=== PATIENT | male | born 1980 | race Caucasian/White ===

== ENCOUNTER 2020-06-25 22:36 | Outpatient (REF) | payer MEDICAID, SELFPAY ==
[2020-06-25 21:24] LABS: Abs Immature Grans 0.03 10^3/uL (0.0-0.06); Absolute Basophil Count 0.05 10^3/uL (0.0-0.2); Absolute Eosinophil Count 0.09 10^3/uL (0.0-0.7); Absolute Lymphocyte Count 3.23 10^3/uL (1.2-3.4); Absolute Monocyte Count 0.58 10^3/uL (0.1-0.8); Absolute Neutrophil Count 4.17 10^3/uL (1.2-6.7); Basophils % 0.6; Eosinophils % 1.1; HCT 49.6 % (40.0-50.0); Immature Grans % 0.4; Lymphocytes % 39.6; MCH 28.9 pg (27.0-33.0); MCHC 32.3 % (32.0-36.0); MCV 89.7 fL (80-95); MPV 10.4 fL (8.0-11.0); Monocytes % 7.1; Neutrophils % 51.2; Nucleated RBC 0 %; Platelet Count 249 10^3/uL (130-400); RBC 5.53 10^6/uL (4.36-5.78); RDW-SD 42.8 fL; WBC 8.15 10^3/uL (4.4-10.8)
[2020-06-25 21:46] LABS: ALT 24 U/L (16-63); AST 12 U/L (15-37); Albumin 4.2 g/dL (3.4-5.0); Alkaline Phosphatase 51 U/L (46-116); Anion Gap 5.8 mmol/L (3-11); BUN 19 mg/dL (7-18); Bilirubin, Total 0.4 mg/dL (0.2-1.0); CO2 29.2 mmol/L (21.0-32.0); CREATININE 0.89 mg/dL (0.70-1.30); Calcium 8.9 mg/dL (8.5-10.1); Calculated LDL 124 mg/dL (<100); Chloride 106 mmol/L (98-107); Cholesterol 186 mg/dL (<200); Glucose 108 mg/dL (74-106); HDL Cholesterol 40 mg/dL (40-60); Potassium 4.3 mmol/L (3.5-5.1); Sodium 141 mmol/L (136-145); Total Protein 7.1 g/dL (6.4-8.2); Triglyceride 111 mg/dL (<150)
== END 2020-06-25 22:56 ==
LOC: NCHCN 22:36
PROVIDERS: PCP Physician Assistant; Visit Provider Physician Assistant
DX: Z13.220 Encounter for screening for lipoid disorders (principal); Z13.1 Encounter for screening for diabetes mellitus; Z00.00 Encounter for general adult medical examination without abnormal findings
CPT/HCPCS: 80053; 80061; 85025

== ENCOUNTER 2020-07-02 02:10 | Outpatient (CLI) | payer MEDICAID, SELFPAY ==
--- NOTE | 2020-07-02 15:57 | DI.RAD_ITS ---
EXAM: XR CERVICAL SPINE COMP 4-5V CLINICAL HISTORY: CERVICALGIA, M54.2. TECHNIQUE: 2D digital imaging was performed. COMPARISON: No exams were available for comparison FINDINGS: BONES: No fracture or destructive lesion. Vertebral bodies are unremarkable. DISKS: At C5-6 and C6-C7, there is disc space narrowing and endplate osteophytes. Moderate bilateral neural foraminal stenosis is seen at C5-6 and C6-C7. ALIGNMENT: Cervical spinal alignment is within normal limits. The odontoid and atlantoaxial articulat ions are normal. SOFT TISSUE: Normal. The lung apices are clear. IMPRESSION: Moderate degenerative changes at C5-6 and C6-C7. DATA REPOSITORY: RADIATION DOSE DELIVERED:
== END 2020-07-02 02:30 ==
PROVIDERS: PCP Physician Assistant; Visit Provider Physician Assistant
DX: M47.812 Spondylosis without myelopathy or radiculopathy, cervical region (principal); M54.2 Cervicalgia
CPT/HCPCS: 72050

== ENCOUNTER 2020-07-26 01:29 | Outpatient (CLI) | payer MEDICAID, SELFPAY ==
--- NOTE | 2020-07-26 | DI.MRI_ITS ---
EXAM: MR CERVICAL SPINE WO CLINICAL HISTORY: DEGENERATIVE JONT DISEASE,M43.02,CERVICALAGIA,M54.2 TECHNIQUE: Multiplanar multisequence MRI of the cervical spine was performed without intravenous con trast. COMPARISON: No exams were available for comparison FINDINGS: The examination is limited due to patient motion artifact. BONES: Vertebral body heights are maintained. Intervertebral disc spaces are normal. Alignment is nor mal. Mild degenerative endplate signal changes at C5-6 and C6-C7 CERVICAL CORD: Craniovertebral junction is unremarkable. The cervical cord is normal size and signal intensity. SOFT TISSUES: Unremarkable. C2-3: No disc herniation or bulge is identified. No significant central spinal canal or neural forami nal stenosis. C3-4: No disc herniation or bulge is identified. No significant central spinal canal or neural forami nal stenosis C4-5: No disc herniation or bulge is identified. No significant central spinal canal or neural forami nal stenosis C5-6: Prominence of the osteophyte disc complex. Mild narrowing of the central spinal canal. Bilate ral moderate neural foraminal stenosis. C6-7: Prominence of the osteophyte disc complex. No significant central spinal canal stenosis. Mode rate bilateral neural foraminal stenosis. C7-T1: No disc herniation or bulge is identified. No significant central spinal canal or neural prosper inal stenosis IMPRESSION: Degenerative changes at C5-6 and C6-C7. The findings result in mild narrowing of the central spinal canal at C5-6 and bilateral neural foraminal stenosis at C5-6 and C6-C7. DATA REPOSITORY:
== END 2020-07-26 01:49 ==
PROVIDERS: PCP Physician Assistant; Visit Provider Physician Assistant
DX: M47.812 Spondylosis without myelopathy or radiculopathy, cervical region (principal); M48.02 Spinal stenosis, cervical region
CPT/HCPCS: 72141

== ENCOUNTER 2021-05-12 17:42 | Emergency (ER) | payer MEDICAID, SELFPAY ==
[2021-05-12 17:48] VITALS: BP 129/74; PULSE 74; RESP 16; TEMP 36.9; O2SAT 98
--- NOTE | 2021-05-12 18:42 | ED.GENADUL_ITS ---
Discharge Plan Disposition Patient Disposition: HOME Condition: Good Discharge Details Clinical Impression: URI (upper respiratory infection) Primary Care Provider: Maria Fernanda Pichardo ED Provider: Estephania Mullen Home Meds and New Rx's Prescriptions: New flunisolide 25 mcg (0.025 %) spray,non-aerosol 2 spray intranasal BID Qty: 25 RF: 0 No Action aspirin 325 mg tablet 325 mg PO DAILY RF: 0 ibuprofen 200 mg tablet 200 mg PO Q6H PRNRF: 0 Discharge Instructions Instructions: Upper Respiratory Infection (ED) Additional Instructions: Take Sudafed over the counter, you will likely need to show your license for pseudoephedrine, take every 4-6 hours motrin 600 mg every 8 hours use flonase for the next two weeks follow-up with pcp in 3-4 days with persistent symptoms coat your nostrils with vaseline twice daily return earlier with fever, chills, or with any new or worsening complaints Discharge Data Discharge Date/Time-TO BE ENTERED AT DEPARTURE: 05/12/21 19:50 Medical Decision Making Patient is alert and oriented, he appears well No indication for antibiotics at this time, fever, no hypoxia, no honey, alert, oriented, no facial edema Vitals stable Flonase and Sudafed, ibuprofen, Tylenol, will not continue to use [place] pot Return precautions discussed and patient expressed understanding, Medical Records Medical records reviewed: Yes I reviewed the patient's medical records. HPI General Mode of arrival: ambulatory . Date/Time Provider Initiated Documentation: 05/12/21 18:18 . Limitations to Documentation: no limitations . Information obtained by: patient . HPI Narrative: This 41-year-old male presents Related Data Home Medications Medication Instructions Recorded Confirmed aspirin 325 mg tablet 325 mg PO DAILY 03/20/21 05/12/21 ibuprofen 200 mg tablet 200 mg PO Q6H PRN 03/20/21 05/12/21 flunisolide 2 spray INTRANASAL BID #25 ml 05/12/21 Previous Rx's Medication Instructions Recorded flunisolide 2 spray INTRANASAL BID #25 ml 05/12/21 Allergies Allergy/AdvReac Type Severity Reaction Status Date / Time tomato Allergy Intermediate Unverified 05/12/21 17:53 bupropion HCl Allergy Hives Unverified 05/12/21 17:53 [From Wellbutrin] General Stated Complaint: RespSymp MONSERRAT: 4 Review of Systems All systems reviewed & are unremarkable except as noted in HPI and below PFSH Medical History Cervicalgia Degenerative joint disease of cervical spine Preventative health care Screening for diabetes mellitus Screening for lipid disorders Tobacco use Social History (Updated 03/20/21 @ 11:07 by Yu Marino) Smoking/Tobacco Use Status: Current every day Tobacco Type: cigarettes Smoking risk assessment performed?: Yes Alcohol Intake: current Alcohol Intake frequency: holidays/special occasions only Drug use: Daily Substance use type: marijuana Household members: family and children Housing: house Number of Children: 2 current occupation: [employer] What type of physical activity do you participate in: walking, independent ambulation, regular exercise and swimming Exam Const General: cooperative and well developed HENMT Other: No maxillary sinus tenderness, no ethmoid sinus tenderness, mild nasal mucosa bogginess Uvula midline Eyes Pupils: PERRL Chest Chest: normal inspection of the chest Resp Effort & Inspection: normal respiratory effort Auscultation: clear to auscultation bilaterally Cardio Rate: regular rate Rhythm: regular rhythm Skin General skin exam: no rashes or lesions noted Neuro General: patient alert and patient oriented x3 Course Vital Signs Vital signs: Vital Signs Temperature 36.9 C 05/12/21 17:48 Pulse 74 05/12/21 17:48 Respiratory Rate 16 05/12/21 17:48 Blood Pressure 129/74 05/12/21 17:48 Pulse Oximetry 98 05/12/21 17:48 Temperature 36.9 C 05/12/21 17:48 Temperature Source Skin 05/12/21 17:48 Pulse 74 05/12/21 17:48 Respiratory Rate 16 05/12/21 17:48 Respiratory Effort Non-Labored 05/12/21 17:53 Respiratory Depth Normal 05/12/21 17:53 Blood Pressure 129/74 05/12/21 17:48 Blood Pressure Position Sitting 05/12/21 17:48 Pulse Oximetry 98 05/12/21 17:48 Oxygen Delivery Method Room Air 05/12/21 17:48 Oxygen Flow Rate 0 05/12/21 17:48 Pain Level 5 05/12/21 17:48
== END 2021-05-12 19:50 | disposition home or self-care (01) ==
PROVIDERS: Emergency Provider Physician Assistant; PCP Physician Assistant
DX: J06.9 Acute upper respiratory infection, unspecified (principal); F17.210 Nicotine dependence, cigarettes, uncomplicated
CPT/HCPCS: 99283

== ENCOUNTER 2022-03-23 16:31 | Emergency (ER) | payer MEDICAID, SELFPAY ==
[2022-03-23 16:35] VITALS: BP 121/66; PULSE 75; RESP 18; TEMP 36.3; O2SAT 98
--- NOTE | 2022-03-23 17:10 | ED.GENADUL_ITS ---
Discharge Plan Disposition Patient Disposition: HOME Condition: Stable Discharge Details Clinical Impression: Hematuria Primary Care Provider: Maria Fernanda Pichardo ED Provider: Jacey Montiel Home Meds and New Rx's Prescriptions: Continued aspirin 325 mg tablet 325 mg PO DAILY PRN ibuprofen 200 mg tablet 200 mg PO Q6H PRN flunisolide 25 mcg (0.025 %) spray,non-aerosol 2 spray intranasal BID Qty: 25 0RF Discharge Instructions Instructions: Hematuria (ED) Additional Instructions: At this time there is no evidence for infection in your urine there is small amount of blood. The culture will take approximately 2 to 3 days to return if you do need to be on antibiotic we will call you. Follow up with primary care provider in 3-5 days. Return to ED sooner if any worsening back pain, abdominal pain, vomiting, problems urinating or concerns. Increase oral fluids. Please take Tylenol or Ibuprofen with food every 4-6 hours as needed for pain and swelling. Referrals: Maria Fernanda Pichardo [Primary Care Provider] - 1 week Discharge Data Discharge Date/Time-TO BE ENTERED AT DEPARTURE: 03/23/22 18:08 Medical Decision Making 41-year-old male presents to the ER with chief complaint of blood noted after ejaculating and green-colored urine which he noted today prior to arrival. He denies any trauma denies any abdominal pain no back pain. He denies any dysuria. He reports intermittent right testicle achiness with is not present on initial exam. He denies any lesions or penile discharge. He does have a past medical history of degenerative joint disease he does take aspirin daily. Gonorrhea chlamydia and urinalysis ordered. Differential diagnosis includes but not limited to prostatitis, STI, UTI, trauma Urinalysis shows moderate blood no leukocytes no nitrites. Discussed urine results with patient who verbalized understanding. Due to patient not having any flank pain or abdominal pain I do not feel imaging is warranted at this time. I did discuss home care and red flags and strict return instructions he verbalizes understanding. This time the gonorrhea chlamydia is pending. This text was generated using [employer] system, please disregard any oddities of phrase or misspellings. Lab Data Lab results reviewed: Yes I reviewed the patient's lab results. Labs: Laboratory Tests Range/Units 03/23/22 17:35 Urine Color (Yellow) Yellow Urine Clarity (Clear) Clear Urine pH (5-8) 6.0 Ur Specific [place] (1.005-1.025) 1.025 Urine Protein (Negative) mg/dL Negative Urine Ketones (Negative) mg/dL Negative Urine Blood (Negative) Moderate H Urine Nitrite (Negative) Negative Urine Bilirubin (Negative) Negative Urine Urobilinogen (Up TO 0.2) EU/dL 0.2 Ur Leukocyte Esterase (Negative) Negative Urine RBC (0-2) HPF 3-5 H Urine WBC (0-5) HPF Negative Ur Epithelial Cells (Negative) HPF Negative Urine Crystals (Negative) HPF Negative Urine Bacteria (Negative) HPF Negative Urine Mucus (Negative) Moderate Ur Culture Indicated? No Urine Glucose (Negative) mg/dL Negative HPI General Mode of arrival: ambulatory . Date/Time Provider Initiated Documentation: 03/23/22 16:37 . Limitations to Documentation: no limitations . Information obtained by: patient, RN notes reviewed and old records reviewed . HPI Narrative: 41-year-old male presents to the ER with chief complaint of blood noted after ejaculating and green-colored urine which he noted today prior to arrival. He denies any trauma denies any abdominal pain no back pain. He denies any dysuria. He reports intermittent right testicle achiness with is not present on initial exam. He denies any lesions or penile discharge. He does have a past medical history of degenerative joint disease he does take aspirin daily. Related Data Home Medications Medication Instructions Recorded Confirmed aspirin 325 mg tablet 325 mg PO DAILY PRN 03/20/21 03/23/22 ibuprofen 200 mg tablet 200 mg PO Q6H PRN 03/20/21 03/23/22 flunisolide 25 mcg (0.025 %) nasal 2 spray intranasal BID #25 mL 05/12/21 spray Previous Rx's Medication Instructions Recorded flunisolide 25 mcg (0.025 %) nasal 2 spray intranasal BID #25 mL 05/12/21 spray Allergies Allergy/AdvReac Type Severity Reaction Status Date / Time tomato Allergy Intermediate Unverified 03/23/22 16:38 bupropion HCl Allergy Hives Unverified 03/23/22 16:38 [From Wellbutrin] General Stated Complaint: Urinary MONSERRAT: 4 Review of Systems All systems reviewed & are unremarkable except as noted in HPI and below Genitourinary Genitourinary: Reports as per HPI, Reports hematospermia, Reports hematuria and Denies genital lesions PFSH All Active Problems (Updated 03/23/22 @ 17:57 by Jacey Montiel) URI (upper respiratory infection) (Acute) Hematuria (Acute) Medical History Cervicalgia Degenerative joint disease of cervical spine Preventative health care Screening for diabetes mellitus Screening for lipid disorders Tobacco use Social History Smoking/Tobacco Use Status: Current every day Tobacco Type: cigarettes and e- cigarettes Smoking risk assessment performed?: Yes Alcohol Intake: current Alcohol Intake frequency: holidays/special occasions only Drug use: Daily Substance use type: marijuana Household members: family and children Housing: house Number of Children: 2 current occupation: [employer] What type of physical activity do you participate in: walking, independent ambulation, regular exercise and swimming Do you feel safe at home: Yes Do you feel safe in your relationship?: Yes Exam Narrative Exam Narrative: Constitutional: Alert and oriented x3. Appears stated age. Normal body habitus. Head: Normocephalic, no trauma. Eyes: Pupils PERRL, Red reflex noted, EOM's intact. Eyelids symmetrical without lesions, discharge, or swelling. ENT: Bilateral TM's WNL, External ear normal to inspection, no mastoid TTP, swelling, or erythema, Nasal turbinates WNL, no nasal discharge. Normal dentition, Posterior pharynx WNL, no exudate. Chest: RRR, Normal S1, S2, distal pulses intact. Resp: Lungs clear to auscultation bilaterally, no wheezes, rales, or rhonchi. Abdomen: Soft, non-distended, Normoactive bowel sounds all 4 quads. Musculoskeletal: Normal gait, 5/5 strength to all four extremities. Skin: No suspicious rashes or lesions. Capillary refill less than 2 sec. Neurologic: Cranial nerves II-XII intact. Alert and oriented x 3. Motor: No deficits noted. Sensory: Intact bilaterally all 4 extremities. Reflexes: DTR's intact bilaterally.. Hematologic/Lymphatic: No ecchymosis, no lymphadenopathy. Course Vital Signs Vital signs: Vital Signs Temperature 36.3 C L 03/23/22 16:35 Pulse 75 03/23/22 16:35 Respiratory Rate 18 03/23/22 16:35 Blood Pressure 121/66 03/23/22 16:35 Pulse Oximetry 98 03/23/22 16:35 Temperature 36.3 C L 03/23/22 16:35 Temperature Source Temporal Artery Scan 03/23/22 16:35 Pulse 75 03/23/22 16:35 Respiratory Rate 18 03/23/22 16:35 Respiratory Effort Non-Labored 03/23/22 16:39 Blood Pressure 121/66 03/23/22 16:35 Blood Pressure Position Sitting 03/23/22 16:35 Pulse Oximetry 98 03/23/22 16:35 Oxygen Delivery Method Room Air 03/23/22 16:35 Oxygen Flow Rate 0 03/23/22 16:35
[2022-03-23 17:44] LABS: Bilirubin Negative (Negative); Blood Moderate (Negative); Clarity Clear (Clear); Glucose Negative (Negative); Ketones Negative (Negative); Leukocyte Esterase Negative (Negative); Nitrite Negative (Negative); Specific Gravity 1.025 (1.005-1.025); Urobilinogen 0.2 EU/dL (Up TO 0.2)
[2022-03-23 17:54] LABS: Bacteria Negative HPF (Negative); C & S Indicated? No; Crystals Negative HPF (Negative); Epithelial Cells Negative HPF (Negative); Mucus Moderate (Negative); WBC Negative HPF (0-5)
[2022-03-25 15:13] LABS: Chlamydia Result Negative (Negative); GC Result Negative (Negative)
== END 2022-03-23 18:08 | disposition home or self-care (01) ==
PROVIDERS: Emergency Provider Registered Nurse Emergency; PCP Physician Assistant
DX: R31.9 Hematuria, unspecified (principal)
CPT/HCPCS: 87491; 87591; 99282; 81003; 81015

== ENCOUNTER 2022-04-01 16:29 | Outpatient (CLI) | payer MEDICAID, SELFPAY ==
--- NOTE | 2022-04-01 | DI.RAD_ITS ---
Exam(s) XR ABDOMEN FLAT PLATE EXAM: XR ABDOMEN FLAT PLATE CLINICAL HISTORY: HEMATURIA, R31.9. TECHNIQUE: 2D digital imaging was performed. COMPARISON: No exams were available for comparison FINDINGS: Single AP supine view The bowel gas pattern is nonspecific in the supine position. There is air throughout the colon but t he colon is not distended. Stomach is also not distended. No obvious calcifications seen over the kidneys nor along the course of the ureters. Regional bones appear unremarkable. IMPRESSION: No significant radiographic findings. No radiopaque calculi seen DATA REPOSITORY: RADIATION DOSE DELIVERED:
[2022-04-01 18:17] LABS: Bilirubin Negative (Negative); Blood Small (Negative); Clarity Clear (Clear); Glucose Negative (Negative); Ketones Negative (Negative); Leukocyte Esterase Negative (Negative); Nitrite Negative (Negative); Specific Gravity 1.025 (1.005-1.025); Urobilinogen 0.2 EU/dL (Up TO 0.2); pH 5.5 (5-8)
[2022-04-01 18:49] LABS: Bacteria Negative HPF (Negative); C & S Indicated? No; Casts Negative LPF (Negative); Crystals Negative HPF (Negative); Epithelial Cells Rare HPF (Negative); Mucus Negative (Negative); Other Cells Negative (Negative); RBC Negative HPF (0-2)
== END 2022-04-01 16:30 | disposition home or self-care (01) ==
LOC: DI 16:37 → NCHCN 17:32
PROVIDERS: PCP Physician Assistant; Visit Provider Nurse Practitioner Family
DX: R31.9 Hematuria, unspecified (principal); R36.1 Hematospermia
CPT/HCPCS: 74018; 81003; 81015

== ENCOUNTER 2023-04-26 12:39 | Emergency (ER) | payer MEDICAID, SELFPAY ==
[2023-04-26 12:44] VITALS: BP 129/82; PULSE 70; RESP 18; TEMP 37.2; O2SAT 97
--- NOTE | 2023-04-26 13:34 | ED.GENADUL_ITS ---
Discharge Plan Disposition Patient Disposition: Home Discharge Details Clinical Impression: Hordeolum externum of right lower eyelid Primary Care Provider: Maria Fernanda Pichardo ED Provider: Estephania Mullen Home Meds and New Rx's Prescriptions: New erythromycin 5 mg/gram (0.5 %) ointment 0.5 inch ophthalmic (eye) TID Qty: 3.5 0RF Rx Instructions: apply over eye lid Continued ibuprofen 200 mg tablet 200 mg PO Q6H PRN Discharge Instructions Additional Instructions: Apply erythromycin over your lower lid over the area of tenderness Ibuprofen and Tylenol as needed for pain Warm compresses for 5 minutes every several hours as tolerated until drains, recommend 2 to 3 days Return earlier should you have new or worsening complaints including spreading redness, fever, worsening pain Discharge Data Discharge Date/Time-TO BE ENTERED AT DEPARTURE: 04/26/23 13:47 Medical Decision Making Patient presents with right eye pain, hordeolum noted to upper lid on assessment, no active drainage, no evidence of preseptal or septal cellulitis Placed on erythromycin ointment, warm compresses encouraged Return precautions reviewed and patient expressed understanding HPI General Date/Time Provider Initiated Documentation: 04/26/23 13:17 . HPI Narrative: Patient has been having some right eye pain for the past 2 days and swelling with discharge home as affected eye. Denies any change in vision. Denies any contact lens use. Denies any fever or chills. Related Data Home Medications Medication Instructions Recorded Confirmed ibuprofen 200 mg tablet 200 mg PO Q6H PRN 03/20/21 04/26/23 erythromycin 5 mg/gram (0.5 %) eye 0.5 inch ophthalmic (eye) TID #3.5 04/26/23 ointment grams Previous Rx's Medication Instructions Recorded erythromycin 5 mg/gram (0.5 %) eye 0.5 inch ophthalmic (eye) TID #3.5 04/26/23 ointment grams Allergies Allergy/AdvReac Type Severity Reaction Status Date / Time tomato Allergy Intermediate Unverified 04/26/23 12:47 bupropion HCl Allergy Hives Unverified 04/26/23 12:47 [From Wellbutrin] General Stated Complaint: EyeProblem MONSERRAT: 4 PFSH All Active Problems (Updated 04/26/23 @ 13:38 by AIMEE Bolanos) Hordeolum externum of right lower eyelid (Acute) Cervical radiculopathy (Acute) DJD (degenerative joint disease) (Chronic) Bloody ejaculation (Acute) URI (upper respiratory infection) (Acute) Medical History Cervicalgia Degenerative joint disease of cervical spine Preventative health care Screening for diabetes mellitus Screening for lipid disorders Tobacco use Social History Smoking/Tobacco Use Status: Current every day Tobacco Type: cigarettes Smoking risk assessment performed?: Yes Alcohol Intake: current Alcohol Intake frequency: holidays/special occasions only Drug use: Daily Substance use type: marijuana Household members: family and children Housing: house Number of Children: 2 current occupation: [employer] What type of physical activity do you participate in: walking, independent ambulation, regular exercise and swimming Do you feel safe at home: Yes Do you feel safe in your relationship?: Yes Course Vital Signs Vital signs: Vital Signs Temperature 37.2 C 04/26/23 12:44 Pulse 70 04/26/23 12:44 Respiratory Rate 18 04/26/23 12:44 Blood Pressure 129/82 04/26/23 12:44 Pulse Oximetry 97 04/26/23 12:44 Temperature 37.2 C 04/26/23 12:44 Temperature Source Temporal Artery Scan 04/26/23 12:44 Pulse 70 04/26/23 12:44 Respiratory Rate 18 04/26/23 12:44 Respiratory Effort Normal, Non-Labored 04/26/23 12:48 Blood Pressure 129/82 04/26/23 12:44 Pulse Oximetry 97 04/26/23 12:44 Oxygen Delivery Method Room Air 04/26/23 12:44 Oxygen Flow Rate 0 04/26/23 12:44 PAWSS Have you Been Recently Intoxicated or Drunk Within the Last 30 days?: No Have you Ever Experienced Previous Episodes of Alcohol Withdrawal?: No Have you ever Experienced Withdrawal Seizures?: No Have you ever Experienced Delirium Tremens(DT)s?: No Have you ever undergone Alcohol Rehabilitation Treatment (i.e, inpt ot outpatient treatment programs)?: No Have you ever Experienced Blackouts?: No Have you ever Combined Alcohol with other Downers within the last 90 days?: No Have you ever Combined Alcohol with any other Substance of Abuse during the last 90 days?: No Positive Blood Alcohol level on Presentation? [PCS.BAL]: No Evidence of Increased Autonomic Activity (i.e. HR>120, tremor, sweating, agitation, nausea)?: No Result: 0
== END 2023-04-26 13:47 | disposition home or self-care (01) ==
PROVIDERS: Emergency Provider Physician Assistant; PCP Physician Assistant
DX: H00.011 Hordeolum externum right upper eyelid (principal)
CPT/HCPCS: 99283